=== PATIENT | male | born 1975 | race Caucasian/White ===

== ENCOUNTER 2024-05-29 22:45 | Emergency (ER) | payer OTHER ==
[2024-05-29] VITALS (8 sets, daily range): BP systolic 68–116; BP diastolic 38–78
[~2024-05-29] VITALS: Ht 175.3 cm; Wt 86.0 kg
[2024-05-29] MEDS ORDERED: SODIUM CHLORIDE 0.9% 1,000 ML IV ONE (22:50)
[2024-05-29 23:09] LABS: BASO% 0.6 % (0-3); HEMATOCRIT 43.2 % (39.0-50.0); HEMOGLOBIN 14.3 g/dl (14.0-18.0); IMMATURE GRANULOCYTES 0.6 % (0.0-5.0); LYMPH% 35.3 % (15-41); MEAN CELL VOLUME 100.9 fL CALC (80.0-100.0); MEAN CORPUSCULAR HGB 33.4 pG CALC (26.0-32.0); MEAN CORPUSCULAR HGB CONC 33.1 g/dL CAL (32.0-36.0); MONO% 14.7 % (2-13); NEUT# 3.08 thou/uL (1.82-7.42); NEUT% 46.8 % (42-76); RED BLOOD COUNT 4.28 mill/uL (4.70-6.10); RED CELL DISTRI WIDTH 11.5 % (11.5-15.5)
[2024-05-29 23:20] LABS: ALBUMIN 4.7 g/dL (3.2-5.0); CREATININE 1.1 mg/dL (0.7-1.3); POTASSIUM 3.2 mmol/l (3.5-5.1); TOTAL PROTEIN 7.8 g/dL (6.3-8.2)
[2024-05-30] VITALS (9 sets, daily range): BP systolic 41–136; BP diastolic 11–83
[2024-05-30] MEDS ORDERED: SODIUM CHLORIDE 0.9% 1,000 ML IV ONE (00:10)
[2024-05-30 00:44] LABS: URINE BILIRUBIN - DIPSTICK Negative (NEGATIVE); URINE BLOOD DIPSTICK Negative (NEGATIVE); URINE GLUCOSE - DIPSTICK Negative (NEGATIVE); URINE KETONE Trace mg/dL (NEGATIVE); URINE NITRITE - DIPSTICK Negative (Negative); URINE PH 5.5 (4.5-8.0); URINE PROTEIN - DIPSTICK 100 mg/dL (NEG-TRACE); URINE SPECIFIC GRAVITY >=1.030; URINE UROBILINOGEN - DIPSTICK 0.2 E.U./dL (0.2)
[2024-05-30 00:51] LABS: URINE BACTERIA FEW hpf; URINE COLOR Yellow; URINE EPITHELIAL CELLS FEW EPI/hpf (0-FEW); URINE LEUK ESTERASE Negative (NEGATIVE); URINE RBC 0-2 RBC/hpf (0-5)
[2024-05-30 00:52] LABS: URINE MUCUS MANY hpf (NONE-FEW)
[2024-05-30] MEDS ORDERED: KEPPRA500 M2 PO (01:05)
== END 2024-05-30 01:24 | disposition home or self-care (01) | DRG 101 ==
LOC: ED 22:45
PROVIDERS: Family Medicine
DX: R56.9 Unspecified convulsions (principal); R91.8 Other nonspecific abnormal finding of lung field
CPT/HCPCS: J1953